=== PATIENT | female | born 1995 | race African-American/Black ===

== ENCOUNTER 2024-08-20 09:47 | Emergency (ER) | payer MEDICAID, SELFPAY ==
--- NOTE | ~2024-08-20 | XR_ITS ---
XR finger 3rd RT min 2V Ordering provider: STEVO Dunlap History: . jammed last night. GEN PROXIMAL PAIN . Comparison: None. FINDINGS: BONES: No acute fracture or dislocation. JOINT SPACES: Normal. SOFT TISSUES: Normal. IMPRESSION: No acute osseous abnormality. Reviewed, dictated and finalized at location A.
[2024-08-20 09:56] VITALS: BP 144/89; PULSE 97; RESP 16; TEMP 36.7; O2SAT 100
--- NOTE | 2024-08-20 10:28 | ED_ITS ---
HPI - Extremity Injury (Upper) General Chief Complaint: Extremity Injury, Upper Stated Complaint: Middle Finger Injury on Right Hand Time Seen by Provider: 08/20/24 10:11 Source: patient and RN notes reviewed Mode of arrival: ambulatory Limitations: no limitations History of Present Illness HPI narrative: Patient presents today with an injury to her right 3rd finger. States she jammed yesterday at home and has been having severe pain ever since, preventing her from fully extending it due to pain and swelling. She currently rates her pain 8/10 and has tried no [id number]-ekp-[id number] intervention prior to arrival. Related Data Home Medications ?Medication ?Instructions ?Recorded ?Confirmed ?Last Taken ?Type No Home Medications 08/20/24 08/20/24 Unknown History Allergies Allergy/AdvReac Type Severity Reaction Status Date / Time No Known Allergies Allergy Verified 08/20/24 10:00 Review of Systems Review of Systems: CONSTITUTIONAL: Denies body aches, fever, chills, or sweats. EYES: Denies visual changes, redness, or discharge. ENT: Denies rhinorrhea, congestion, sore throat, or otalgia. CARDIOVASCULAR: Denies chest pain, palpitations, or edema. RESPIRATORY: Denies cough or dyspnea. GASTROINTESTINAL: Denies abdominal pain, nausea, vomiting, or diarrhea. GENITOURINARY: Denies dysuria or hematuria. SKIN: Denies rash, itching, or wounds. MUSCULOSKELETAL:+ right 3rd finger injury NEUROLOGIC: Denies headache, numbness, tingling, or weakness. PSYCH: Denies depression or anxiety. PMFSH Comments At time of signature, I have reviewed and agree with nursing past medical, surgical, social and family history unless otherwise noted. Please see nursing chart for further information. There is no relevant family history pertinent to the presenting complaint Exam Narrative: GENERAL: Well-appearing, well-nourished, and in no acute distress. HEAD: Normocephalic, atraumatic. EYES: EOMI. No redness or drainage. Conjunctivae normal. ENT: Mucous membranes pink and moist. NECK: Normal AROM. CHEST: No respiratory distress. EXTREMITIES: Right 3rd finger: Mild edema to the PIP. Pain to the 3rd metatarsal extending to the tip of the finger with palpation. Patient is unable to fully extend her finger due to pain and swelling. Distal sensation intact. Capillary refill normal. SKIN: Warm, dry, no rash. Capillary refill normal. Normal skin turgor. NEURO: No focal deficits. Alert and oriented x3. Gait steady. PSYCH: Normal affect. No signs of depression or anxiety. Course Course Level of Care: Express Care Visit Vital Signs Vital signs: Vital Signs Temperature 98.1 F 08/20/24 09:56 Pulse Rate 97 08/20/24 09:56 Respiratory Rate 16 08/20/24 09:56 Blood Pressure 144/89 H 08/20/24 09:56 Pulse Oximetry 100 08/20/24 09:56 Oxygen Delivery Room Air 08/20/24 09:56 Temperature 98.1 F 08/20/24 09:56 Pulse Rate 97 08/20/24 09:56 Respiratory Rate 16 08/20/24 09:56 Blood Pressure 144/89 H 08/20/24 09:56 Pulse Oximetry 100 08/20/24 09:56 Oxygen Delivery Room Air 08/20/24 09:56 Reviewed MDM - Extremity Injury (Upper) MDM Narrative Medical decision making narrative: X-ray is negative. Splint applied. Recommend RICE with follow-up in 7-10 days if symptoms persist. Anticipatory guidance given. Differential Diagnosis Differential diagnosis: Likely finger sprain and other (Finger fracture, dislocation) Imaging Data Radiologist's impression: ITS Impressions Finger X-Ray 08/20/24 10:34 IMPRESSION: No acute osseous abnormality. Critical Care Time Critical Care Time Critical Care Time: No Discharge Plan Discharge Clinical Impression: Finger sprain Qualifiers: Encounter type: initial encounter Finger: middle finger Sprain of finger site: unspecified site Laterality: right Qualified Code(s): S63.612A - Unspecified sprain of right middle finger, initial encounter Patient Disposition: Home Condition: Stable Instructions: Finger Sprain (ED) Additional Instructions: Your x-rays negative for fracture. A splint has been applied to help with pain and immobilization while healing. Elevate and ice the finger. Take Tylenol or ibuprofen for pain if needed. Follow-up with your PCP or orthopedic physician in 7-10 days if symptoms are not improving. Your blood pressure was elevated above 120/80 today at Urgent Care. This puts you above the threshold for follow up. Please schedule a followup visit with your personal physician as soon as possible, for further evaluation and treatment. Even blood pressure exceeding 120/80 may indicate pre-hypertension. Patient Language: Ukrainian Prescriptions: No Action No Home Medications Follow-up/Referrals: PHYSICIAN,TUMBLING MACHINE OPERATOR [Primary Care Provider] - David Burciaga MD [Physician] - Time of Disposition: 10:42
--- OUTSIDE RECORDS SUMMARY | 2024-08-20 10:50 | XMS_ITS | Clinical Summary ---
Author Organization [facility] Address [address] [place] [address] Phone Care Team Providers Care Bracer Name Role Phone Manoj Sherwood MD Primary Care Provider [phone] Allergies No known active allergies Medications inhalational spacing device SpacerIndicati ons:Rhonchi at both lung bases ATTACHED TO END OF INHALER, USE DIRECTED 1 Each 4 Active Additional Information Patient not taking.Reported on 08/12/2024 promethazine-d extromethorpha n (PHENERGAN-DM) 6.25-15 mg/5 mL syrup Take 5 mL by mouth every 4 hours as needed for Cough. 120 mL 1 4 Active Additional Information Patient not taking.Reported on 08/12/2024 methylPREDNISo lone (Medrol, Roberto Carlos,) 4 mg Tablets, Dose Pack Take as written on box. 21 Tablet 4 Active Additional Information Patient not taking.Reported on 08/12/2024 desogestreL-et hinyl estradioL (ORTHO-CEPT) 0.15-0.03 mg Tablet Take 1 Tablet by mouth daily. 84 Tablet 3 4 Active Additional Information Patient not taking.Reported on 08/12/2024 gabapentin (NEURONTIN) 100 mg capsuleIndicat ions:Chronic bilateral low back pain with bilateral sciatica Take 1 Capsule (100 mg) by mouth 3 times daily. For pain 100 Capsule 1 4 Active Additional Information Patient not taking.Reported on 08/12/2024 metroNIDAZOLE (METROGEL) 0.75 % (37.5mg/5 gram) vaginal gel Insert 5 grams daily at bedtime for 5 nights 70 Gram 5 Active metroNIDAZOLE (FLAGYL) 500 mg tablet Take 1 Tablet (500 mg) by mouth 2 times daily for 7 days. 14 Tablet 5 025 metroNIDAZOLE (FLAGYL) 500 mg tablet Take 1 Tablet (500 mg) by mouth 2 times daily. 14 Tablet 5 025 Discontinu ed(Alterna te therapy prescribed ) Active Problems Problem Noted Date Diagnosed Date Preventative health care 03/13/2022 Hx of migraines 03/13/2022 Spell of visual disturbance 02/13/2022 Chronic bilateral low back pain with sciatica Overview (10/29/2023): 10/26 MRI L/S SPINE->Normal noncontrast MRI of the lumbar spine. 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, Boy in NICU 08/08/2020 02/13/2022 Obesity in , antepartum 08/07/2020 02/13/2022 Obesity (BMI 30.0-34.9) 08/07/202002/02 PTL, indocin, Mag, BMZ boost, GBS+ (PCN) 08/01/2020 02/13/2022 Anxiety state 08/01/2020 02/13/2022 BV (bacterial vaginosis) 03/13/202002/2022 Yeast vaginitis 03/13/2020 08/07/2020 Spotting affecting in first trimester 02/06/2020 08/07/2020 Premature cervical dilation 03/17/2018 08/07/2020 Vaginal discharge during pre gnancy in second trimester 03/11/2018 08/07/2020 Altered mental status 02/27/20182020 Vaginal bleeding in 12/04/2016 08/07/2020 labor in third trimester 11/18/2016 02/13/2022 Dizziness 11/01/2016 08/07/2020 Abdominal pain during pregna ncy in third trimester 11/01/2016 08/07/2020 PTL, MgSO4, Indocin, DMZ, NICU 10/11/2016 08/07/2020 , Chorio(A/G x 24'), GDMA 2(no accuchecks), cHTN(hold lab) 08/09/2015 08/07/2020 Chorio: MIL- Pit s/p AROM fo rebag 1530/FB/cytotec, A/G, MgSO4 @ active, s/p PPROM 24w4d, cHTN(hold lab 100 BID, nl labs), GDMA2 (Nov , NPH 02/09), accuceck q2/1 in labor, BMZ 06/2206/21/2015 08/09/2015 dizzy/SOLIS/ruq/scotomata (v/q, EKG wnl), gHTN (lab 100 bid), 23h obs, 24h urine, nst qd, labs in AM, [facility] 06/13/2015 08/07/2020 33w3d - Precip, Severe P re-E (labetalol 100 BID), s/p mag, [facility] 10/03/2014 08/07/2020 MIL (pit, AROM@2000), Pre-E w severe (vision changes, 24 312mg, ua: 7.9, other labs nl), Lab 200mg BID, MgSO4, BMZ(max 10/03 1300), PNC7/30: Vertex, 2313g (58%), Ant Placenta, TAISHA 21.7, [facility] 09/30/2014 10/03/2014 Spell of altered consciousness 08/07/2020 , complicated 02/13 Seizure-like activity 2021 Acute non intractable tension-type headache 08/07/2020 Headache in , antep artum, second trimester 08/07/2020 Pain of right lower extremity 08/07/2020 Acute pain of right shoulder 08/07/2020 Pelvic pressure in 02/13/2022 uterine contractions in second trimester, antepartum 08/07/2020 History of delivery, currently 02/13/2022 Intact amniotic membranes, antepartum 02/13/2022 Nausea/vomiting in 08/07/2020 Acute diarrhea 08/07/2020 Gastroenteritis 08/07/2020 labor in second trim cristina without delivery 08/07/2020 Encounters Date Type Department Care Team Description 08/13/2024 Results Follow-Up [facility] ELECTROTYPER APPRENTICE - Medical [facility] [address] [facility] [address] [address] Aakash Mccall MD VAGINOSIS/VAGINITIS PANEL PLUS 08/13/2024 Telephone [facility] Clinical Support [address] [place] [address] Usha Waggoner RN Lab Results 08/12/2024 11:40 AM CDT Office Visit [facility] ELECTROTYPER APPRENTICE - [facility] [address] [facility] [address] [address] Aakash Mccall MD Vaginal discharge (Primary Dx); BV (bacterial vaginosis); LLQ abdominal pain 08/05/2024 External Device Data STL ABSTRACTION Provider, Abstract 07/25/2024 [facility] Clinical Support [address] [place] [address] Elsa Call RN Vaginitis 07/15/2024 External Device Data STL ABSTRACTION Provider, Abstract 07/15/2024 External Device Data STL ABSTRACTION Provider, Abstract 07/08/2024 External Device Data STL ABSTRACTION Provider, Abstract from Last 3 Months Immunizations Immunization Administration Dates Next Due (ACTHIB/HIBERIX)(2 MOS-5 YRS /6 WKS-4 YRS) HAEMOPHILUS INFLUENZAE TYPE B VACCINE (HIB), PRP-T CONJUGATE, 4 DOSE, 0.5 ML IM 04/25/1995 (ADACEL/BOOSTRIX)(10 YR UP) TDAP VACCINE, 0.5ML, IM 08/07/2020(),07/15/2015,04/17/2008 (INFANRIX)(6 WKS-6 YRS) DIPT HERIA, TETANUS TOXOIDS, AND ACCELLULAR PERTUSSIS VACCINE (DTAP), 0.5 ML IM 03/19/1998,04/25/1995 (IPOL)(6 WKS AND UP) POLIOVI GLENNA VACCINE, INACTIVATED (IPV), 3 DOSE, SUBCUT OR IM 03/19/1998,1994,1994,02/01 (M-M-R II/PRIORIX)(12 MO UP) MEASLES, MUMPS AND RUBELLA VIRUS VACCINE, 0.5 ML IM/SUBCUT 03/19/1998,02/07/1995 (RECOMBIVAX HB/ENGERIX-B)(0- 19 YRS) HEPATITIS B VACCINE 5 MCG/0.5 ML OR 10 MCG/0.5 ML PED OR ADOL 3 DOSE (PF), IM 1994,1994,1994 (VARIVAX)(12 MOS UP)VARICELL A VIRUS VACCINE (PF) 0.5 ML, SUB CUT 08/25/1997 Diptheria, Tetanus Toxoids, And Whole Cell Pertussis Vaccine (DTP), for intramuscular use 1994,1994,1994 HIB, Unspecified Formulation 04/25/1995, 1994,1994,03/09 Poliovirus Vaccine, Unspecif ied Formulation 03/19/1998,1994,1994,02/01 Family History Medical History Relation Name Comments Healthy Daughter 1 Healthy Daughter 2 Healthy Father Cancer Mother cervical cancer Healthy Sister 1 Healthy Sister 2 Healthy Son 1 Healthy Son 2 Prematurity Son 3 21 weeks Breast Cancer Neg Hx Colon Cancer Neg Hx Ovarian Cancer Neg Hx Relation Name Status Comments Daughter 1 Alive Daughter 2 Alive Father Alive Maternal Grandfather Alive Maternal Grandmother Mother Alive Paternal Grandfather Paternal Grandmother Sister 1 Alive Sister 2 Alive Son 1 Alive Son 2 Alive Son 3 Son 4 Alive Social History Tobacco Use Types Packs/Day Years Used Date Smoking Tobacco: Never Smokeless Tobacco: Never Tobacco Cessation:Counseling Given: No Alcohol Use Standard Drinks/Week Comments No 0 (1 standard drink = 0.6 oz pur e alcohol) Feeling Safe Answer Date Recorded Are you in a relationship wi th someone who hurts you emotionally and/or physically? No 09/14/2023 Comments No Sex and Gender Information Value Date Recorded Sex Assigned at Not on file Legal Sex Female 9:31 PM CDT Gender Identity Not on file Sexual Orientation Not on file Last Filed Vital Signs Vital Sign Reading Time Taken Comments Blood Pressure 113/75 08/12/2024 11:41 AM CDT Pulse 89 08/12/2024 11:41 AM CDT Temperature 36.8 C (98.3 F) 08/12/2024 11:41 AM CDT Respiratory Rate 18 10/26/2023 11:2 5 AM CDT Oxygen Saturation 98% 08/12/2024 11: 41 AM CDT Inhaled Oxygen Concentration - - Weight 86.5 kg (190 lb 12.8 oz) 025 11:41 AM CDT Height 170.2 cm (5' 7) 08/12/2024 11:4 1 AM CDT Body Mass Index 29.88 08/12/2024 11:41 AM CDT Plan of Treatment Upcoming Encounters Date Type Department Care Team (Late st Contact Info) Description 09/30/2024 11:15 AM CDT Office Visit [facility] ELECTROTYPER APPRENTICE - [address] [place] [address] Caroline Garcia, VIVIENNE [address] [facility] [address] [place] [address] Health Maintenance Due Date Last Done Comments HEPATITIS B VACCINES (3 of 3 - 3-dose series) 1994 1994, 1994, 1994 INFLUENZA VACCINE (#1) 2023 02/13/2022, 2021 Preventative Visit- Commercial 03/05/2024 09/26/2023, 03/13/2022, 02/13/2022, Additional history exists DTAP/TDAP/TD VACCINES (8 - Td or Tdap) 07/14/2025 07/15/2015, 04/17/2008, 03/19/1998, Additional history exists HPV/Cotest (21-29) 11/26/2025 11/26/2020, 04/02/2019 HPV/Cotest (30-65) 11/26/2025 11/26/2020, 04/02/2019 CERVICAL CANCER SCREENING 09/25/2026 PAP SMEAR 09/25/2026 09/26/2023, 11/04, 11/26/2020, Additional history exists HPV VACCINES Aged Out No longer eligi ble based on patient's age to complete this topic Procedures Procedure Name Priority Date/Time Associated Diagnosis Comments VAGINOSIS/VAGINITI S PANEL PLUS Routine 08/12/2024 12:06 PM CDT Vaginal discharge CERV/VAG CYTO AGE BASED SCREEN PAP Routine 09/26/2023 12:11 PM CDT Well woman exam with routine gynecological exam CERV/VAG CYTO AGE BASED SCREEN PAP Routine 11/26/2020 12:59 PM CDT Well woman exam with routine gynecological exam from Last 3 Months or Most Recently Relevant to Health Maintenance Results * (ABNORMAL) VAGINOSIS/VAGINITIS PANEL PLUS (08/12/2024 12:06 PM CDT) BACTERIAL VAGINOSIS POSITIVE(A) NEGATIVE [facility] JULY SPECIES NOT DETECTED NOT DETECTED [facility] JULY GLABRATA NOT DETECTED NOT DETECTED [facility] Comment: July species C. albicans, C. tropicalis, C. parapsilosis, and/or C. dubliniensis can be detected, but not differentiated, in the July spp. result. TRICHOMONAS VAGINALIS (TV), TMA NOT DETECTED NOT DETECTED [facility] CHLAMYDIA TRACHOMATIS RNA, TMA, UROGENITAL NOT DETECTED NOT DETECTED [facility] NEISSERIA GONORRHOEAE RNA, TMA, UROGENITAL NOT DETECTED NOT DETECTED [facility] Comment: For additional information, please refer to https://education.[employer]/faq/WXU508 (This link is being provided for information/ educational purposes only.) Test Performed at: [facility] [address] [place] [address] Carol Barnhart MD Genital SPECIMEN FROM VAGINA / Unknown 08/12/2024 12:06 PM CDT 08/12/2024 8:43 PM CDT Aakash Mccall MD MICROBIOLOGY - GENERAL ORDERA BLES Final Result [facility] [phone] [facility] [address] [place] [address] * CERV/VAG CYTO AGE BASED SCREEN PAP (09/26/2023 12:11 PM CDT) Only the most recent of2 resultswithin the time period is included. COMMENT (PAP): Montserrat Wheeler Comment: This order for age-based cervical cancer and STI screening follows ACOG guidelines(PB 168, 140, NPX544). See individual assays for performing site location. CLINICAL INFORMATION Montserrat Wheeler Comment:None given LAST MENSTRUAL PERIOD Montserrat Wheeler Comment:NONE GIVEN PREV PAP: Montserrat Wheeler Comment:NONE GIVEN PREV BX: Montserrat Wheeler Comment:NONE GIVEN SOURCE Montserrat Wheeler Comment:Endocervix ADEQUACY: Montserrat Wheeler Comment: Satisfactory for evaluation. Endocervical/transformation zone component present. Age and/or menstrual status not provided PAP INTERP Montserrat Wheeler Comment: Cytology Results: Negative for intraepithelial lesion or malignancy. COMMENT (PAP TEST) Q ishan Wheeler Comment: This case could not be evaluated with computer assisted technology. The slide was manually screened according to routine procedures. TEASELER: Magda Wheeler Comment: DDS, CT(ASCP) CT screening location: [place] [address] [address] [place] [id number] REVIEW TEASELER: Montserrat Wheeler Comment: PCM, CT(ASCP) CT Screening Location: [place] [address] [address] [place] [id number] [address] NOTE [address] Barney Wheeler Comment: EXPLANATORY NOTE: The Pap is a screening test for cervical cancer. It is not a diagnostic test and is subject to false negative and false positive results. It is most reliable when a satisfactory sample, regularly obtained, is submitted with relevant clinical findings and history, and when the Pap result is evaluated along with historic and current clinical information. Test Performed at: [facility] [address] [place] [phone] Carol Barnhart Genital SWAB OF ENDOCERVIX / Unknown 09/26/2023 12:11 PM CDT 09/26/2023 11:39 PM CDT us Caroline Garcia NP PATHOLOGY/CYTOLOGY ORDERABLE S Final Result [facility] [phone] [place] [id number] [place] [address] from Last 3 Months or Most Recently Relevant to Health Maintenance Insurance RX INFOCROSS[employer] Medicaid [facility]AN [facility] [employer] MEDICAID Advance Directives For more information, please contact: [phone] * Full Code (Latest Code Status on File) Date Activated Date Inactivated Comments 05/15/2021 11:07 PM 05/17/2021 2:21 PM * Full Code Date Activated Date Inactivated Comments 05/13/2021 4:45 PM 05/13/2021 9:14 PM * Full Code Date Activated Date Inactivated Comments 04/22/2021 4:11 PM 04/22/2021 9:39 PM * Full Code Date Activated Date Inactivated Comments 08/08/2020 1:29 AM 08/11/2020 7:00 PM * Full Code Date Activated Date Inactivated Comments 08/01/2020 2:49 PM 08/08/2020 1:29 AM Care Teams Bracer Relationship Specialty Start Date End Date Manoj Sherwood MD [address] [place] [phone] PCP - General Internal Medicine 02/13/22
--- OUTSIDE RECORDS SUMMARY | 2024-08-20 10:50 | XMS_ITS | Encounter Summary ---
Author Organization [facility] Address [address] [place] [address] Care Team Providers Care Bump Grader Operator Name Role Phone Manoj Sherwood MD Primary Care Provider [phone] Encounter Details Date Type Department Care Team (Late Contact Info) Description 08/13/2024 Results Follow-Up [facility] FURNITURE UPHOLSTERY MECHANIC - [address] [address] Aakash Mccall MD [address] [place] [address] VAGINOSIS/VAGINITIS PANEL PLUS Social History Tobacco Use Types Packs/Day Years Used Date Smoking Tobacco: Never Smokeless Tobacco: Never Alcohol Use Standard Drinks/Week Comments No 0 [...] on file Sexual Orientation Not on file documented as of this encounter Plan of Treatment Upcoming Encounters Date Type Department Care Team (Late Contact Info) Description 09/30/2024 11:15 AM CDT Office Visit [facility] FURNITURE UPHOLSTERY MECHANIC - [place] [address] [place] [address] Caroline Garcia, VIVIENNE [address] [place] [address] documented as of this encounter Visit Diagnoses Not on filedocumented in this encounter Care Teams Bump Grader Operator Relationship Specialty Start Date End Date Manoj Sherwood MD [address] [facility] [address] [place] [address] PCP - General Internal Medicine 02/13/22 documented as of this encounter
== END 2024-08-20 10:47 | disposition home or self-care (01) ==
PROVIDERS: Emergency Provider Nurse Practitioner
DX: S63.612A Unspecified sprain of right middle finger, initial encounter (principal); X58.XXXA Exposure to other specified factors, initial encounter
CPT/HCPCS: 29130; 73140; 99203; G0463